=== PATIENT | female | born 1965 | race Two or more races ===

== ENCOUNTER 2019-01-07 13:35 | Emergency (ER) | payer SELFPAY ==
[2019-01-07 13:43] VITALS: BP 150/81
--- NOTE | 2019-01-07 14:00 | ER Document Report ---
HPI - HPI Time Seen by Provider: 01/07/19 13:53 Pain Level: 5 Notes: Patient is a 53-year-old female with a history of hypertension who presents to the emergency department complaining of right ankle, foot, knee pain status post fall early this morning. Patient states that she is going to work when she stepped in a hole and fell forward. Patient believes that she may have twisted at that time. Patient states that she has been able to ambulate, but is limping. She is noticed swelling and bruising to the lateral ankle/foot area. Denies drug allergies. Denies any headache, fever, head injury, neck pain, URI, sore throat, chest pain, palpitations, syncope, cough, shortness of breath, wheeze, dyspnea, abdominal pain, nausea/vomiting/diarrhea, urinary retention, dysuria, hematuria, loss of control of bowel or bladder, numbness/tingling, saddle anesthesia, muscle paralysis, or rash. - ROS Systems Reviewed and Negative: Yes All other systems reviewed and negative - CONSTITUTIONAL Constitutional: DENIES: Fever, Chills - EENT EENT: DENIES: Sore Throat, Ear Pain, Eye problems - NEURO Neurology: DENIES: Headache, Weakness, Vision blurred, Dizzinesss / Vertigo - CARDIOVASCULAR Cardiovascular: DENIES: Chest pain - RESPIRATORY Respiratory: DENIES: Trouble Breathing, Coughing - GASTROINTESTINAL Gastrointestinal: DENIES: Abdominal Pain, Black / Bloody Stools - URINARY Urinary: DENIES: Dysuria, Urgency, Frequency - MUSCULOSKELETAL Musculoskeletal: REPORTS: Extremity pain - right ankle Past Medical History - Social History Smoking Status: Current Every Day Smoker Chew tobacco use (# tins/day): No Frequency of alcohol use: Rare Drug Abuse: None Family History: Reviewed & Not Pertinent Patient has suicidal ideation: No Patient has homicidal ideation: No - Past Medical History Cardiac Medical History: Reports: Hx Hypertension Renal/ Medical History: Denies: Hx Peritoneal Dialysis Past Surgical History: Reports: Hx Gynecologic Surgery - oopherectomy unsure which Vertical Provider Document - CONSTITUTIONAL Agree With Documented VS: Yes Notes: PHYSICAL EXAMINATION: GENERAL: Well-appearing, well-nourished and in no acute distress. LUNGS: Breath sounds clear to auscultation bilaterally and equal. No wheezes rales or rhonchi. HEART: Regular rate and rhythm without murmurs, rubs, gallops. Musculoskeletal: Rt foot/ankle: + ecchymosis and swelling to the foot/ankle (Lat>med). LROM to passive/active. Strength 4+/5 due to pain. N/V intact distal. + tenderness to the lateral malleolus > med. mall. + tenderness of the lateral dorsal foot. Achilles intact. Rt knee: No obvious swelling, effusion, or deformity. + scant ecchymosis anterior knee. FROM to passive/active and flexion >90 w/o difficulty. Strength 5+/5. N/V intact distal. + tenderness near the fibubular head and anterior knee. No calf tenderness. Extremities: No cyanosis, clubbing, or edema b/l. Peripheral pulses 2+. Capillary refill less than 3 seconds. NEUROLOGICAL: Normal speech, limping gait. Normal sensory, motor exams PSYCH: Normal mood, normal affect. SKIN: see above - INFECTION CONTROL TRAVEL OUTSIDE OF THE [place] IN LAST 30 DAYS: No Course - Re-evaluation Re-evalutation: 01/07/19 15:14 Patient is an afebrile, well-hydrated, 53-year-old female who presents to the ED with Rt ankle/knee/foot pain which I suspect to be a sprain versus strain. Vitals are acceptable without any significant tachycardia, tachypnea, or hypoxia. PE is otherwise unremarkable for any neurovascular compromise, obvious tendon/ligament rupture, obvious fracture/dislocation, septic joint. X-ray was unremarkable for any acute pathology. Ankle stirrup and crutches were provided today. Patient is nontoxic-appearing. Patient is able to ambulate and weight- bear although she is limping. No other labs or imaging warranted at this time based on H&P. Conservative measures otherwise for symptoms. Recheck with your PCM in 3-5 days. Consider consult orthopedics. Return to the ED with any worsening/concerning symptoms otherwise as reviewed in discharge. Patient is in agreement. - Vital Signs Vital signs: Temp Pulse Resp BP Pulse Ox 98.6 F 103 H 18 150/81 H 95 01/07/19 13:41 01/07/19 13:41 01/07/19 13:41 01/07/19 13:41 01/07/19 13:41 Discharge - Discharge Clinical Impression: Right foot pain Right ankle pain Qualifiers: Chronicity: acute Qualified Code(s): M25.571 - Pain in right ankle and joints of right foot Right knee pain Qualifiers: Chronicity: acute Qualified Code(s): M25.561 - Pain in right knee Condition: Stable Disposition: HOME, SELF-CARE Additional Instructions: Rest, Ice, Compression, Elevation Use crutches/splint as directed Tylenol/ibuprofen as needed Light stretches daily Strength exercises as able Moist heat and massage may help F/u with your PCP in 3-5 days for a recheck Consider consult(s) with Orthopedics/physical therapy for ongoing/worsening symptoms Return to the ED with any worsening symptoms and/or development of fever, headache, chest pain, palpitations, syncope, shortness of breath, trouble breathing, abdominal pain, n/v/d, muscle weakness/paralysis, numbness/tingling, swelling, redness, or other worsening symptoms that are concerning to you. Forms: Elevated Blood Pressure, Return to Work, Smoking Cessation Education Referrals: [facility] [Provider Group] - Follow up as needed
--- NOTE | 2019-01-07 15:04 | RADIOLOGY REPORT (SQ) ---
EXAM DESCRIPTION: KNEE RIGHT 4 VIEWS COMPLETED DATE/TIME: 01/07/2019 2:38 pm REASON FOR STUDY: pain s/p fall injury COMPARISON: None. NUMBER OF VIEWS: Four views. TECHNIQUE: AP, lateral, and both oblique radiographic images acquired of the right knee. LIMITATIONS: None. FINDINGS: MINERALIZATION: Normal. BONES: No acute fracture or dislocation. No worrisome bone lesions. JOINT: No significant joint effusion. High-grade lateral compartment joint space narrowing is presen t with bony spurring SOFT TISSUES: No soft tissue swelling. No radio-opaque foreign body. OTHER: No other significant finding. IMPRESSION: No acute changes. High-grade joint space narrowing right knee lateral compartment TECHNICAL DOCUMENTATION: JOB ID: [id number] [employer]- All Rights Reserved Reading location - IP/workstation name: [email or web address]
--- NOTE | 2019-01-07 15:04 | RADIOLOGY REPORT (SQ) ---
EXAM DESCRIPTION: FOOT RIGHT COMPLETE; ANKLE RIGHT COMPLETE COMPLETED DATE/TIME: 01/07/2019 2:38 pm REASON FOR STUDY: pain s/p fall injury COMPARISON: None. FINDINGS: Three views right ankle: High osteopenia. Generalized soft tissue swelling. No displaced fracture or suggestion of effusion. Three views right foot: Osteopenic. 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 Soft tissue swelling. No gross fracture. TECHNICAL DOCUMENTATION: JOB ID: [id number] Reading location - IP/workstation name: [email or web address]
--- NOTE | 2019-01-07 15:04 | RADIOLOGY REPORT (SQ) ---
EXAM DESCRIPTION: FOOT RIGHT COMPLETE; ANKLE RIGHT COMPLETE COMPLETED DATE/TIME: 01/07/2019 2:38 pm REASON FOR STUDY: pain s/p fall injury COMPARISON: None. FINDINGS: Three views right ankle: High osteopenia. Generalized soft tissue swelling. No displaced fracture or suggestion of effusion. Three views right foot: Osteopenic. 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 Soft tissue swelling. No gross fracture. TECHNICAL DOCUMENTATION: JOB ID: [id number] Reading location - IP/workstation name: [email or web address]
== END 2019-01-07 15:39 | disposition home or self-care (01) ==
LOC: ER 13:35
DX: S90.01XA Contusion of right ankle, initial encounter (principal); M25.511 Pain in right shoulder; M79.671 Pain in right foot; M25.561 Pain in right knee; M79.89 Other specified soft tissue disorders; W17.2XXA Fall into hole, initial encounter; I10 Essential (primary) hypertension; F17.200 Nicotine dependence, unspecified, uncomplicated
CPT/HCPCS: 99283; 73610; 73630; 73564; L1902

== ENCOUNTER 2019-04-27 09:37 | Emergency (ER) | payer SELFPAY ==
--- NOTE | 2019-04-27 09:56 | ER Document Report ---
ED Medical Screen (RME) - General Stated Complaint: HEADACHE Time Seen by Provider: 04/27/19 09:48 Mode of Arrival: Medic Information source: Patient Notes: Patient states she was at work and started to develop an occipital headache that radiated behind her eyes. Patient states pain is primarily to the left side of her head at this time. Patient states that she felt faint got dizzy and could not hear momentarily which is what caused her to call EMS. Patient states that she can hear normal now at this time. Patient denies any nausea or vomiting. Patient does have a history of hypertension but is compliant with her medications. Patient states headache pain started gradually. I have greeted and performed a rapid initial assessment of this patient. A comprehensive ED assessment and evaluation of the patient, analysis of test results and completion of the medical decision making process will be conducted by additional ED providers. TRAVEL OUTSIDE OF THE [place] IN LAST 30 DAYS: No - Related Data Allergies/Adverse Reactions: No Known Allergies Allergy (Verified 01/07/19 13:37) Past Medical History - Past Medical History Cardiac Medical History: Reports: Hx Hypertension Renal/ Medical History: Denies: Hx Peritoneal Dialysis Past Surgical History: Reports: Hx Gynecologic Surgery - oopherectomy unsure which Physical Exam - Neurological Neuro grossly intact: Yes [place] Coma Scale Eye Opening: Spontaneous [place] Coma Scale Verbal: Oriented [place] Coma Scale Motor: Obeys Commands [place] Coma Scale Total: 15
[2019-04-27 10:10] LABS: ABSOLUTE EOSINOPHILS # (AUTO) 0.1 10^3/uL (0.0-0.6); ABSOLUTE MONOCYTES (AUTO) 0.3 10^3/uL (0.1-1.4); ABSOLUTE NEUT (AUTO) 2.1 10^3/uL (1.7-8.2); EOSINOPHILS % (AUTO) 1.6 % (0-6); HEMATOCRIT 44.4 % (36.0-47.0); HEMOGLOBIN 14.9 g/dL (12.0-15.5); LYMPHOCYTES % (AUTO) 43.5 % (13-45); MEAN CORPUSCULAR HEMOGLOBIN 30.6 pg (27.0-33.4); MEAN CORPUSCULAR HGB CONC 33.6 g/dL (32.0-36.0); MEAN CORPUSCULAR VOLUME 91 fl (80-97); MONOCYTES % (AUTO) 7.4 % (3-13); RED BLOOD COUNT 4.87 10^6/uL (3.72-5.28); RED CELL DISTRIBUTION WIDTH 14.6 % (11.5-14.0); SEGMENTED NEUTROPHILS % (AUTO) 46.5 % (42-78); TOTAL CELLS COUNTED % (AUTO) 100 %; WHITE BLOOD COUNT 4.6 10^3/uL (4.0-10.5)
[2019-04-27] MEDS ORDERED: DIPHENHYDRAMINE HCL 50 MG/ML VIAL IV ONE (10:10)
[2019-04-27] MEDS ORDERED: PROCHLORPERAZINE EDISYLATE INJ 10 MG/2 ML VIAL IV ONE (10:10)
[2019-04-27 10:12] LABS: INTERNATIONAL RATION (INR) 1.24; PROTHROMBIN TIME 15.7 SEC (11.4-15.4)
[2019-04-27 10:13] LABS: PARTIAL THROMBOPLASTIN TIME 31.9 SEC (23.5-35.8)
[2019-04-27 10:30] LABS: ALBUMIN 3.7 g/dL (3.5-5.0); ALKALINE PHOSPHATASE 143 U/L (38-126); ANION GAP 7 (5-19); ASPARTATE AMINO TRANSFERASE 108 U/L (14-36); BILIRUBIN,DIRECT 0.6 mg/dL (0.0-0.4); BILIRUBIN,TOTAL 1.4 mg/dL (0.2-1.3); BLOOD UREA NITROGEN 12 mg/dL (7-20); CALCIUM 8.5 mg/dL (8.4-10.2); CARBON DIOXIDE 28 mmol/L (22-30); CHLORIDE 105 mmol/L (98-107); GLUCOSE 116 mg/dL (75-110); POTASSIUM 3.9 mmol/L (3.6-5.0)
[2019-04-27] MEDS ORDERED: ONDANSETRON HCL INJ/PF 4 MG/2 ML SDV IV ONE (10:31)
[2019-04-27] MEDS ORDERED: ACETAMINOPHEN 325 MG TABLET PO ONE (10:31)
--- NOTE | 2019-04-27 10:38 | RADIOLOGY REPORT (SQ) ---
EXAM DESCRIPTION: CT HEAD WITHOUT COMPLETED DATE/TIME: 04/27/2019 10:23 am REASON FOR STUDY: LEONARDO, dizziness, momentary loss of hearing COMPARISON: None. TECHNIQUE: Axial images acquired through the brain without intravenous contrast. Images reviewed wi th bone, brain and subdural windows. Additional sagittal and coronal reconstructions were generated. Images stored on PACS. All CT scanners at this facility use dose modulation, iterative reconstruction, and/or weight based d osing when appropriate to reduce radiation dose to as low as reasonably achievable (ALARA). [facility]: Dose Right [facility]: CareDose [facility]: Dose Right [facility]: Teradose 4D [facility]: Smart Defend Your Head RADIATION DOSE: CT Rad equipment meets quality standard of care and radiation dose reduction techniq ues were employed. CTDIvol: 53.2 mGy. DLP: 1070 mGy-cm. mGy. LIMITATIONS: None. FINDINGS: VENTRICLES: Normal size and contour. CEREBRUM: No masses. No hemorrhage. No midline shift. No evidence for acute infarction. Normal gra y/white matter differentiation. No areas of low density in the white matter. CEREBELLUM: No masses. No hemorrhage. No alteration of density. No evidence for acute infarction. EXTRAAXIAL SPACES: There is subarachnoid hemorrhage in the basal cisterns and about the anterior brai nstem. ORBITS AND GLOBE: No intra- or extraconal masses. Normal contour of globe without masses. CALVARIUM: No fracture. PARANASAL SINUSES: No fluid or mucosal thickening. SOFT TISSUES: No mass or hematoma. OTHER: No other significant finding. IMPRESSION: There is subarachnoid hemorrhage in the basal cisterns and about the anterior brainstem. No obvious source identified on noncontrast CT. EVIDENCE OF ACUTE STROKE: NO. Findings reported to Dr. Reis by telephone at the time of interpretation. COMMENT: Quality ID # [id number]: Final reports with documentation of one or more dose reduction techniques (e.g., Automated exposure control, adjustment of the mA and/or kV according to patient size, use of iterative reconstruction technique) TECHNICAL DOCUMENTATION: JOB ID: [id number] [employer]- All Rights Reserved Reading location - IP/workstation name: [email or web address]
[2019-04-27] MEDS ORDERED: MORPHINE SULFATE 10 MG/ML INJ IV ONE (10:39)
--- NOTE | 2019-04-27 10:40 | RADIOLOGY REPORT (SQ) ---
EXAM DESCRIPTION: CHEST SINGLE VIEW COMPLETED DATE/TIME: 04/27/2019 10:23 am REASON FOR STUDY: LEONARDO, dizziness COMPARISON: None. EXAM PARAMETERS: NUMBER OF VIEWS: One view. TECHNIQUE: Single frontal radiographic view of the chest acquired. RADIATION DOSE: NA LIMITATIONS: AP lordotic portable film FINDINGS: LUNGS AND PLEURA: No opacities, masses or pneumothorax. No pleural effusion. MEDIASTINUM AND HILAR STRUCTURES: No masses. Contour normal. HEART AND VASCULAR STRUCTURES: Heart normal in size. Normal vasculature. BONES: No acute findings. HARDWARE: None in the chest. OTHER: No other significant finding. IMPRESSION: NO ACUTE RADIOGRAPHIC FINDING IN THE CHEST. TECHNICAL DOCUMENTATION: JOB ID: [id number] [facility]- All Rights Reserved Reading location - IP/workstation name: [email or web address]
[2019-04-27] MEDS ORDERED: FENTANYL CITRATE INJ/PF 100 MCG/2 ML AMPUL IV ONE (10:41)
--- NOTE | 2019-04-27 10:43 | ER Document Report ---
ED General - General Stated Complaint: HEADACHE Time Seen by Provider: 04/27/19 09:48 Mode of Arrival: Medic Notes: Patient is a 54-year-old female who presents to the emergency department with a chief complaint of a headache. She states that the pain starts in the back of her head and travels forward. Her pain started at 9:00 this morning. The pain started all of a sudden. She states that it is worse on the left. The pain comes and goes. 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 She denies hitting her head. Patient denies any past medical history. TRAVEL OUTSIDE OF THE [place] IN LAST 30 DAYS: No - Related Data Allergies/Adverse Reactions: No Known Allergies Allergy (Verified 01/07/19 13:37) Past Medical History - General Information source: Patient - Social History Smoking Status: Current Every Day Smoker Family History: Reviewed & Not Pertinent - Past Medical History Cardiac Medical History: Reports: Hx Hypertension Renal/ Medical History: Denies: Hx Peritoneal Dialysis Past Surgical History: Reports: Hx Gynecologic Surgery - oopherectomy unsure which Review of Systems - Review of Systems Notes: REVIEW OF SYSTEMS: CONSTITUTIONAL : Denies recent illness. Denies recent unintentional weight loss. Denies fever, chills, or sweats. EENT: Denies eye, ear, throat, or mouth pain, discharge, or symptoms. Denies nasal or sinus congestion. CARDIOVASCULAR: Denies chest pain. RESPIRATORY: Denies shortness of breath, cough, congestion, difficulty breathing , or wheezing. GASTROINTESTINAL: Denies nausea, vomiting, and diarrhea. Denies abdominal pain. Denies constipation. GENITOURINARY: Denies difficulty urinating, burning, blood in urine, urgency or frequency. MUSCULOSKELETAL: Denies neck and back pain. Denies joint pain or swelling. SKIN: Denies rash, itchiness, or lesions HEMATOLOGIC : Denies easy bruising or bleeding. LYMPHATIC: Denies swollen, painful, enlarged glands. NEUROLOGICAL: See HPI PSYCHIATRIC: Denies stress, anxiety, alteration in sleep patterns, or depression. All other systems reviewed and negative. Physical Exam - Vital signs Vitals: Temp Pulse Resp BP Pulse Ox 98.2 F 97 21 H 150/90 H 96 04/27/19 09:44 04/27/19 09:44 04/27/19 09:44 04/27/19 09:44 04/27/19 09:44 - Notes Notes: PHYSICAL EXAMINATION: GENERAL: Appears well, healthy, well-nourished, no acute distress. HEAD: Normocephalic, atraumatic. EYES: PERRL, conjunctiva normal, all extraocular movements intact, sclera n onicteric ENT: Moist mucous membranes. NECK: Supple, no noticeable swelling, redness, rash. Normal range of motion. LUNGS: Equal breath sounds bilaterally and clear to auscultation. No wheezes rales or rhonchi. CARDIOVASCULAR: S1-S2, regular rate, regular rhythm. Radial pulses 2+, normal. ABDOMEN: Normoactive bowel sounds. Soft, nontender, no guarding, no rebound tenderness, and no masses palpated. EXTREMITIES: Decreased strength in upper extremities. NEUROLOGICAL: Moves all extremities upon command. Strength 5/5 in all extremities. PSYCH: Normal mood, normal affect. SKIN: Warm, dry. No rash, lesions, ulcerations noted. Normal skin turgor. Course - Re-evaluation Re-evalutation: 04/27/19 10:44 Dr. Elena, the radiologist called to report to me that the patient has a subarachnoid hemorrhage in the basal cisterns at and about the anterior brainstem. I consulted Dr. Holguin, my attending physician and will attempt transfer to [facility]. Dr. Holguin is recommending the patient receive morphine for pain and also Zofran to help with any nausea. Patient's blood pressure is 158/103. Hematology is unremarkable. AST and alkaline phosphate are slightly elevated. Coagulation studies and other chemistries are unremarkable. 04/27/19 11:12 Patient states that she continues to have pain. The patient's NIH is 13, which is worsening. I called [facility]. The patient is also unco ntrollably shaking, but is alert. She received 2 mg of Ativan and fentanyl to help with her pain. 04/27/19 11:[address] Carlton, the neurosurgeon at [facility]. The patient will be in ED to ED transfer. He is recommending TXA, Keppra, and nicardipine drip as needed for a systolic blood pressure less than 140. Patient was updated on needing to transfer to [facility] for higher level of care. She states that she is still in pain, but she is a lot calmer. Patient is still GCS 15. 04/27/19 12:22 Transport team is at bedside. The patient is still awake, alert, and oriented. GCS 15. Patient at this time is stable for transfer to [facility]. - Vital Signs Vital signs: Temp Pulse Resp BP Pulse Ox 98.7 F 105 H 19 135/88 H 99 04/27/19 12:10 04/27/19 11:30 04/27/19 12:21 04/27/19 12:21 04/27/19 12:21 - Laboratory Result Diagrams: 04/27/19 09:31 04/27/19 09:31 Laboratory results interpreted by me: 04/27/19 04/27/19 04/27/19 09:31 09:31 09:31 RDW 14.6 H Plt Count 91 L PT 15.7 H Glucose 116 H Total Bilirubin 1.4 H Direct Bilirubin 0.6 H AST 108 H Alkaline Phosphatase 143 H Discharge - Discharge Clinical Impression: Subarachnoid hemorrhage Condition: Critical Disposition: [facility]
[2019-04-27 11:00] LABS: PLATELET COUNT 91 10^3/uL (150-450)
[2019-04-27] MEDS ORDERED: LORAZEPAM INJ 2 MG/1 ML VIAL IV ONE (11:09)
[2019-04-27] MEDS ORDERED: LEVETIRACETAM 1000 MG/NACL-ISO 1,000 MG/100 ML RTUPB IV ONE (11:26)
[2019-04-27] MEDS ORDERED: TRANEXAMIC ACID INJ/PF 1,000 MG/10 ML SDV IV ONE (11:29)
[2019-04-27] MEDS ORDERED: NICARDIPINE HCL RTU, ISO-OS 20 MG/200 ML RTUINJ IV PRN (11:30)
[2019-04-27 12:40] VITALS: BP 135/88
--- NOTE | 2019-04-27 12:42 | EKG REPORT ---
SEVERITY:- BORDERLINE ECG - SINUS RHYTHM NONSPECIFIC INFERIOR ST-T CHANGES : Confirmed by: Ben Craig MD 27-Apr-2019 12:42:07
== END 2019-04-27 12:50 | disposition short-term general hospital (02) ==
LOC: ER 09:37
DX: I60.9 Nontraumatic subarachnoid hemorrhage, unspecified (principal); R51 Headache; F17.200 Nicotine dependence, unspecified, uncomplicated; I10 Essential (primary) hypertension
CPT/HCPCS: 93005; 99291; 96375; 96365; 36415; 85025; 85610; 85730; 80053; 71045; 70450; 93010; J3010; J2270; J2060; J2405; J1953; J3490